=== PATIENT | female | born 1960 | race African-American/Black ===

== ENCOUNTER 2020-06-14 06:30 | Day surgery (SDC) | payer BC ==
[~2020-06-14] VITALS: Ht 157.5 cm; Wt 68.5 kg
[~2020-06-14 06:30] MED LIST: LISINOPRIL/HYDR1 TA1 OR; METFORMIN500 M2 PO; NORVASC PO; PRAVASTATIN SOD20 MG PO
[2020-06-14 09:28] VITALS: BP 102/75
--- NOTE | 2020-06-22 12:31 | NUR ---
VERBAL NORMAL COLONOSCOPY RESULTS GIVEN TO PATIENT, RECOMMENDATIONS COLONOSCOPY IN 10 YEARS, OVER THE COUNTER SUPPOSITORIES AND HYDROCORTISONE OINTMENT FOR SYMPTOMATIC HEMORRHOIDAL TREATMENT TO BE USED NEEDED, PER WRITTEN PHYSICIAN. PATIENT HAD NO QUESTIONS OR CONCERNS WILL FOLLOW UP WITH PRIMARY CARE PHYSICIAN FOR CONTINUITY OF CARE.
== END 2020-06-14 09:20 | disposition home or self-care (01) | DRG 395 ==
LOC: ENDO 06:30 → ORM 08:45 → ENDO 08:45
PROVIDERS: ATTEND Surgery
PROC: 0DJD8ZZ Inspection of Lower Intestinal Tract, Via Natural or Artificial Opening Endoscopic (ICD-10-PCS; principal; 2020-06-14)
DX: K64.8 Other hemorrhoids (principal); Z86.010 Personal history of colon polyps; Z20.828 Contact with and (suspected) exposure to other viral communicable diseases